=== PATIENT | male | born 1940 | race Caucasian/White ===

== ENCOUNTER 2017-03-26 09:13 | Day surgery (SDC) | payer OTHER ==
[2017-03-12 12:07] LABS: ANION GAP 12 mEq/L (8-16); CALCIUM 9.5 mg/dL (8.5-10.4); CARBON DIOXIDE 23 mEq/l (22-31); CHLORIDE 105 mEq/L (97-110); CREATININE 1.2 mg/dL (0.7-1.3); GLOMERULAR FILTRATION RATE 59; GLUCOSE 93 mg/dL (70-100); POTASSIUM 5.6 mEq/L (3.5-5.2); SODIUM 140 mEq/L (134-144); SPECIMEN HEMOLYSIS 154
--- NOTE | 2017-03-26 09:45 | PDANEPAE ---
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, here for EGD ANE Past Medical History - Cardiovascular History Hx Hypertension: Yes Hx Arrhythmias: No Hx Coronary Artery / Peripheral Vascular Disease: No Hx CHF / Valvular Disease: No - Pulmonary History Hx COPD: No Hx Asthma/Reactive Airway Disease: No Hx Recent Upper Respiratory Infection: No Hx Oxygen in Use at Home: No - Neurologic History Hx Cerebrovascular Accident: No Hx Seizures: No Hx Dementia: No - Endocrine History Hx Diabetes: No - Renal History Hx Renal Disorders: Yes - Liver History Hx Hepatic Disorders: No - Neurological & Psychiatric Hx Hx Neurological and Psychiatric Disorders: No - Cancer History Hx Cancer: Yes - Congenital Disorder History Hx Congenital Disorders: No - GI History Hx Gastrointestinal Disorders: Yes - Chronic Pain History Chronic Pain: Yes (joints, back) ANE Review of Systems - Exercise capacity Exercise capacity: >=4 METS METS (RN): 4 METS ANE Patient History - Allergies Allergies/Adverse Reactions: No Known Allergies Allergy (Verified 03/15/14 15:58) - Home Medications Home medications: home medication list seen and reviewed Home Medications: Atenolol [Tenormin 100 mg (*)] 100 mg PO DAILY 03/15/14 [Last Taken 04/05/14 05: 00] Atorvastatin Calcium [Lipitor 40 mg (*)] 40 mg PO HS 03/15/14 [Last Taken 05:00] Calcium Carbonate/Vitamin D3 [Calcium 600-Vit D3 200 Tablet] 1 each PO DAILY 06/20 [Last Taken 03/29/14] Glucosamine HCl/Chondr Alcantara A Na [Osteo Bi-Flex Caplet] 1 each PO BID@ [Last Taken 03/29/14] Levothyroxine [Synthroid 50 mcg (*)] 50 mcg PO HS 03/15/14 [Last Taken 04/05/14 05:00] Lisinopril/Hydrochlorothiazide [Zestoretic 20-25 Tablet] 1 each PO BID@,06/20 [Last Taken 04/05/14 05:00] Loratadine [Claritin 10 mg] 10 mg PO DAILY 03/15/14 [Last Taken 04/05/14 05:00] Multivit-Min/FA/Lycopene/Lut [Centrum Silver Tablet] 1 each PO DAILY 06/09/14 [ Last Taken 03/29/14] [place]-3 Fatty Acids [Fish Oil 1000 mg (*)] 1,000 mg PO DAILY 03/15/14 [Last Taken 03/29/14] Omeprazole [Prilosec 20 mg] 20 mg PO DAILY 03/15/14 [Last Taken 04/05/14 05:00] Ibuprofen [Motrin (*)] 400 - 600 mg PO Q6 PRN 03/22/14 [Last Taken 03/29/14] Tadalafil [Cialis] 20 mg PO DAILY PRN 03/22/14 [Last Taken 03/16/14] Aspirin [Aspirin 325 mg (*)] 02/25/17 [Last Taken Unknown] - NPO status NPO Since - Liquids (Date): 03/25/17 NPO Since - Solids (Date): 03/25/17 - Anes Hx Anes Hx: no prior problems - Smoking Hx Smoking Status: Former smoker - Alcohol Use Alcohol Use: Heavy - Family Anes Hx Family Anes Hx: none Family Hx Anesthesia Complications: no ANE Labs/Vital Signs - Labs Result Diagrams: 03/12/17 10:52 - Vital Signs Blood Pressure: 125/82 Heart Rate: 63 Respiratory Rate: 13 O2 Sat (%): 93 Height: 170.18 cm Weight: 92.986 kg ANE Physical Exam - Airway Neck exam: decreased ROM, increased neck circumference Mallampati Score: Class 3 Mouth exam: normal dental/mouth exam - Pulmonary Pulmonary: no respiratory distress, clear to auscultation - Cardiovascular Cardiovascular: regular rate and rhythym, no murmur, rub, or gallop - ASA Status ASA Status: III ANE Anesthesia Plan Anesthesia Plan: MAC
[2017-03-26] MEDS ORDERED: PROPOFOL/EMULSION 500 MG/50 ML BOTTLE IV ONE (10:07)
[2017-03-26] MEDS ORDERED: LR 1,000 ML IV ONE (10:09)
--- NOTE | 2017-03-26 10:24 | PDGENHP ---
History & Physical Chief Complaint: F/u of de la rosa's esophagus History of Present Illness: Hx of De La Rosa's esophagus Relevant Physical Exam: GEN: NAD. Cardiac: RRR. Lungs: CTA B. Abd: Soft, nt, nd
[2017-03-26 10:29] LABS: ANION GAP 12 mEq/L (8-16); CALCIUM 9.7 mg/dL (8.5-10.4); CARBON DIOXIDE 23 mEq/l (22-31); CHLORIDE 105 mEq/L (97-110); CREATININE 1.2 mg/dL (0.7-1.3); GLOMERULAR FILTRATION RATE 59; GLUCOSE 96 mg/dL (70-100); POTASSIUM 4.2 mEq/L (3.5-5.2); SODIUM 140 mEq/L (134-144)
[2017-03-26] MEDS ORDERED: NALOXONE HCL 0.4 MG/ML INJ IVP PRN (10:38)
[2017-03-26] MEDS ORDERED: ACETAMINOPHEN 500 MG TAB PO PRN (10:38)
[2017-03-26 11:17] VITALS: TEMP 97.9
[2017-03-26 11:25] VITALS: PULSE 61; RESP 14
[2017-03-26 11:44] VITALS: BP 117/72; O2SAT 91
--- NOTE | 2017-03-26 13:50 | POSTANESTH ---
Post Anesthetic Evaluation Cardiovascular Status: Normal, Stable, Similar to Pre-Op Cond Respiratory Status: Normal, Stable, Similar to Pre-op Cond. Level of Consciousness/Mental Status: Can Participate in Eval, Alert and Oriented Pain Control: Adequate, Prn Tx Ordered Nausea/Vomiting Control: Adequate, Prn Tx Ordered Complications Possibly Related to Anesthesia: None Noted
--- NOTE | 2017-03-26 19:57 | GPN ---
[f rep st] PROCEDURE NOTE PREPROCEDURE DIAGNOSIS: History of Kasper esophagus. POSTPROCEDURE DIAGNOSES: 1. Irregular Z-line. 2. Erythema in the gastric body and antrum, status post biopsies. MEDICATIONS: Monitored anesthesia care. 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 His last upper endoscopy was in 2012. He takes daily low-dose Prilosec. Risks and benefits of the procedure were discussed with the patient. Consent obtained. Risks include but not limited to bleeding, perforation, and sedation. The patient is ASA class 2. DESCRIPTION OF PROCEDURE: The end-viewing endoscope was inserted into the esophagus, into stomach and second portion of the duodenum. The Z-line was slightly irregular at 39 cm from the incisors. Biopsies were taken given his history of Kasper's. Biopsies were taken using cold biopsy forceps. The stomach showed mild erythema along the gastric body and antrum. Biopsies were taken using cold biopsy forceps for Helicobacter pylori. The duodenum and second portion was normal. IMPRESSION: 1. Irregular Z-line, possible Kasper's, status post biopsies. 2. Erythematous gastric mucosa, status post biopsies. RECOMMENDATION: 1. Discharge home with escort. 2. Advance diet as tolerated. 3. Continue current medications. 4. If the biopsies show Kasper esophagus, repeat EGD is recommended in 3 years. 5. Thank you for allowing me to participate in the care of your patient. Thank you for allowing me to participate in the care of your patient please do not hesitate to call with questions. /[id number]/MODL MTDD
== END 2017-03-26 12:12 | disposition home or self-care (01) ==
LOC: FSGY 09:13
PROVIDERS: ATTEND Internal Medicine Gastroenterology
PROC: 0DB38ZX Excision of Lower Esophagus, Via Natural or Artificial Opening Endoscopic, Diagnostic (ICD-10-PCS; principal; 2017-03-26 10:30)
PROC: 0DB68ZX Excision of Stomach, Via Natural or Artificial Opening Endoscopic, Diagnostic (ICD-10-PCS; principal; 2017-03-26 10:30)
DX: K22.8 Other specified diseases of esophagus (principal); K31.89 Other diseases of stomach and duodenum; Z87.19 Personal history of other diseases of the digestive system; Z87.891 Personal history of nicotine dependence
CPT/HCPCS: J2704

== ENCOUNTER 2017-07-13 18:28 | Emergency (ER) | payer OTHER ==
[2017-07-13 18:39] VITALS: RESP 16; O2SAT 94
--- NOTE | 2017-07-13 19:33 | EDPHY ---
H & P Stated Complaint: elevated BP Time Seen by Provider: 07/13/17 19:17 HPI/ROS: CHIEF COMPLAINT: Hypertension HISTORY OF PRESENT ILLNESS: The patient is a 76-year-old man who comes to the emergency department concerned about his elevated blood pressure. He has a history of hypertension and is followed by Dr. Isaiah Parham. Several months ago he had trouble feeling dizzy and was taken off of several of his medications including hydrochlorothiazide and lisinopril. His atenolol dose was cut from 100 to 50. Over the last several weeks however he has had elevated blood pressure 200/100. He has seen Dr. Parham who has placed him back on all of his antihypertensives. He is currently taking atenolol 100 mg a day, HCTZ 25 and lisinopril 20 twice a day. His blood pressure today is 204/100. He is asymptomatic. He denies chest pain. He denies shortness of breath. He denies headache. No dizziness. No weakness or numbness. REVIEW OF SYSTEMS: Constitutional: denies: chills, fever, recent illness, recent injury EENTM: denies: blurred vision, double vision, nose congestion Respiratory: denies: cough, shortness of breath Cardiac: denies: chest pain, irregular heart rate, lightheadedness, palpitations Gastrointestinal/Abdominal: denies: abdominal pain, diarrhea, nausea, vomiting, blood streaked stools Genitourinary: denies: dysuria, frequency, hematuria, pain Musculoskeletal: denies: joint pain, muscle pain Skin: denies: lesions, rash, jaundice, bruising Neurological: denies: headache, numbness, paresthesia, tingling, dizziness, weakness Hematologic/Lymphatic: denies: blood clots, easy bleeding, easy bruising Immunologic/allergic: denies: HIV/AIDS, transplant EXAM: GENERAL: Well-appearing, well-nourished and in no acute distress. HEAD: Atraumatic, normocephalic. EYES: Pupils equal round and reactive to light, extraocular movements intact, sclera anicteric, conjunctiva are normal. ENT: TMs normal, nares patent, oropharynx clear without exudates. Moist mucous membranes. NECK: Normal range of motion, supple without lymphadenopathy or JVD. LUNGS: Breath sounds clear to auscultation bilaterally and equal. No wheezes rales or rhonchi. HEART: Regular rate and rhythm without murmurs, rubs or gallops. ABDOMEN: Soft, nontender, normoactive bowel sounds. No guarding, no rebound. No masses appreciated. BACK: No CVA tenderness, no spinal tenderness, step-offs or deformities EXTREMITIES: Normal range of motion, no pitting or edema. No clubbing or cyanosis. NEUROLOGICAL: Cranial nerves II through XII grossly intact. Normal speech, normal gait. 5/5 strength, normal movement in all extremities, normal sensation PSYCH: Normal mood, normal affect. SKIN: Warm, dry, normal turgor, no visible rashes or lesions. Source: Patient, Family Exam Limitations: No limitations - Personal History Current Tetanus/Diphtheria Vaccine: Yes Current Tetanus Diphtheria and Acellular Pertussis (TDAP): Yes Tetanus Vaccine Date: 2012 - Medical/Surgical History Hx Asthma: No Hx Chronic Respiratory Disease: No Hx Diabetes: No Hx Cardiac Disease: No Hx Renal Disease: No Hx Cirrhosis: No Hx Alcoholism: No Hx HIV/AIDS: No Hx Splenectomy or Spleen Trauma: No Other PMH: arthritis,high chol,htn,reflux, migraines,hypothyroid, prostate CA,L knee arthroscopy, R knee procedure,hernia repair x2, cataract surg - Family History Significant Family History: No pertinent family hx - Social History Smoking Status: Former smoker Alcohol Use: Sober Drug Use: None Constitutional: Initial Vital Signs Temperature (C) 36.7 C 07/13/17 18:35 Heart Rate 59 L 07/13/17 18:35 Respiratory Rate 16 07/13/17 18:35 Blood Pressure 202/103 H 07/13/17 18:35 O2 Sat (%) 94 07/13/17 18:35 O2 Delivery Mode Room Air Allergies/Adverse Reactions: No Known Allergies Allergy (Verified 07/13/17 18:30) Home Medications: Medication Instructions Recorded Atenolol [Tenormin 100 mg (*)] 100 mg PO DAILY 03/15/14 Atorvastatin Calcium [Lipitor 40 40 mg PO HS 03/15/14 mg (*)] Calcium Carbonate/Vitamin D3 1 each PO DAILY 03/15/14 [Calcium 600-Vit D3 200 Tablet] Glucosamine HCl/Chondr Alcantara A Na 1 each PO BID@08,12 03/15/14 [Osteo Bi-Flex Caplet] Levothyroxine [Synthroid 50 mcg 50 mcg PO HS 03/15/14 (*)] Lisinopril/Hydrochlorothiazide 1 each PO BID@08,12 03/15/14 [Zestoretic 20-25 Tablet] Loratadine [Claritin 10 mg] 10 mg PO DAILY 03/15/14 Multivit-Min/FA/Lycopene/Lut 1 each PO DAILY 03/15/14 [Centrum Silver Tablet] [place]-3 Fatty Acids [Fish Oil 1000 1,000 mg PO DAILY 03/15/14 mg (*)] Omeprazole [Prilosec 20 mg] 20 mg PO DAILY 03/15/14 Ibuprofen [Motrin (*)] 400 - 600 mg PO Q6 PRN 03/22/14 Tadalafil [Cialis] 20 mg PO DAILY PRN 03/22/14 Aspirin [Aspirin 325 mg (*)] 02/25/17 Medical Decision Making ED Course/Re-evaluation: The patient has asymptomatic hypertension. I suspect that there is a component of anxiety involved. We discussed options. We agreed to have him increase his hydrochlorothiazide/lisinopril to three times daily and follow up with Dr. Parham over the next several days. Track his blood pressures. We discussed indications for returning including severe headache, stroke-like symptoms, shortness of breath or chest pain. He and his feel comfortable with this plan. They declined further workup or testing at this time. He has scheduled echocardiogram and renal artery CT scan for next week. Differential Diagnosis: Partial list of the Differential diagnosis considered include but were not limited to; hypertension, anxiety and although unlikely based on the history and physical exam, I also considered CVA, acute coronary disease, arrhythmia, PE , pneumothorax, dissection, aneurysm. I discussed these differential diagnoses and the plan with the patient as well as the usual and expected course. The patient understands that the diagnosis is provisional and that in medicine we are not always correct and that further workup is often warranted. Usual and customary warnings were given. All of the patient's questions were answered. The patient was instructed to return to the emergency department should the symptoms at all worsen or return, otherwise to followup with the physician as we discussed. Departure - Departure Disposition: Home, Routine, Self-Care Clinical Impression: Hypertension Qualifiers: Hypertension type: essential hypertension Qualified Code(s): I10 - Essential ( primary) hypertension Condition: Fair Instructions: Hypertension (ED) Additional Instructions: Increase your the HCTZ/lisinopril dose to 3 times a day until you follow up with Dr. Parham in the next couple of days. Record her blood pressures and report to him. Referrals: Isaiah Parham MD [Primary Care Provider] - As per Instructions
[2017-07-13 19:37] VITALS: BP 187/114; PULSE 55; TEMP 98.2
== END 2017-07-13 19:36 | disposition home or self-care (01) ==
DX: I10 Essential (primary) hypertension (principal); Z85.46 Personal history of malignant neoplasm of prostate; Z87.891 Personal history of nicotine dependence

== ENCOUNTER → 2017-07-23 | Outpatient (CLI) | payer OTHER ==
[~2017-07-23] MED LIST: IOPAMIDOL (ISOVUE 370) 100 ML BTL IV ONE
== END ==
LOC: FIMAGING 08:57
PROVIDERS: ATTEND Internal Medicine
DX: I77.4 Celiac artery compression syndrome (principal); I70.0 Atherosclerosis of aorta; I10 Essential (primary) hypertension
CPT/HCPCS: 74175; Q9967

== ENCOUNTER → 2018-04-22 | Outpatient (CLI) | payer OTHER | LOC: BMCIMAGING 11:29 | PROVIDERS: ATTEND Internal Medicine | DX: M54.2 Cervicalgia (principal); R51 Headache; M50.30 Other cervical disc degeneration, unspecified cervical region; M50.221 Other cervical disc displacement at C4-C5 level ==

== ENCOUNTER → 2018-07-23 | Outpatient (CLI) | payer OTHER | LOC: FIMAGING 10:07 | PROVIDERS: ATTEND Internal Medicine | DX: I71.4 Abdominal aortic aneurysm, without rupture (principal); R91.1 Solitary pulmonary nodule; I65.23 Occlusion and stenosis of bilateral carotid arteries | CPT/HCPCS: 71275; 93880; Q9967 ==